=== PATIENT | male | born 2000 | race Caucasian/White ===

== ENCOUNTER 2022-07-11 20:15 | Emergency (ER) | payer SELFPAY ==
[2022-07-11 20:23] VITALS: BP 147/81
[2022-07-11 20:30] VITALS: BP 136/83
[2022-07-11] MEDS ORDERED: VIBRAMYCIN100 M2 PO (20:34)
[2022-07-11 20:40] VITALS: BP 136/83
== END 2022-07-11 20:45 | disposition home or self-care (01) | DRG 607 ==
LOC: ED 20:15
DX: L73.8 Other specified follicular disorders (principal); R59.0 Localized enlarged lymph nodes

== ENCOUNTER 2022-10-01 22:59 | Emergency (ER) | payer SELFPAY ==
[~2022-10-01] VITALS: Ht 180.3 cm; Wt 77.2 kg
[~2022-10-01 22:59] MED LIST: VIBRAMYCIN100 M2 PO
[2022-10-01] MEDS ORDERED: KEFLEX500 MG PO (23:17)
[2022-10-01 23:19] VITALS: BP 123/81
== END 2022-10-01 23:27 | disposition home or self-care (01) | DRG 605 ==
LOC: ED 22:59
DX: S40.812A Abrasion of left upper arm, initial encounter (principal); S40.811A Abrasion of right upper arm, initial encounter; L08.9 Local infection of the skin and subcutaneous tissue, unspecified; X58.XXXA Exposure to other specified factors, initial encounter; Y93.H9 Activity, other involving exterior property and land maintenance, building and construction; Y92.007 Garden or yard of unspecified non-institutional (private) residence as the place of occurrence of the external cause